=== PATIENT | female | born 1990 | race Caucasian/White ===

== ENCOUNTER 2023-11-25 09:07 | Emergency (ER) | payer OTHER, SELFPAY ==
[2023-11-25 09:34] VITALS: BP 155/104; PULSE 75; RESP 18; TEMP 36.8; O2SAT 100; BMI 28.3
--- NOTE | 2023-11-25 10:19 | ED.ANIMALBIT ---
HPI - Animal Bite General Chief Complaint: Animal Bite Stated Complaint: Dog bite Time Seen by Provider: 11/25/23 09:40 Source: patient, RN notes reviewed and old records reviewed Mode of arrival: ambulatory History of Present Illness ED Provider: Margaret Campos PA-C [facility] narrative: 33-year-old female with no significant past medical history presenting to the ED complaining of dog bite to right lower leg from neighbor's dog in [facility]. States she does not know neighbor or dog, believes dog may be a K[place], patient contacted animal control and board of [facility] [employer]. Dog vaccination status is unknown. Patient is not up-to-date on tetanus. Denies injury to the area. MD complaint: animal bite Related Data Previous Rx's ?Medication ?Instructions ?Recorded amoxicillin 875 mg-potassium 1 tab PO BID 7 days #14 tabs 11/25/23 clavulanate 125 mg tablet Allergies Allergy/AdvReac Type Severity Reaction Status Date / Time No Known Allergies Allergy Verified 11/25/23 09:39 Review of Systems Review of Systems: Yes all other systems are reviewed and are negative Constitutional: Constitutional: Reports as per [facility] Past Medical History Attestation statement: The following information was validated with the patient. Source: old records reviewed Social History Social History Advance Directives: No Advance Directives Information Provided: Yes Do you have a plan to hurt others: No Plan Physical Exam ED Vital Signs: Vital Signs - 24 hr 11/25/23 09:34 Temperature 98.3 F Pulse Rate 75 Respiratory Rate 18 Blood Pressure 155/104 H Pulse Oximetry 100 Oxygen Delivery Method Room Air BMI result Body Mass Index 28.3 Const General: cooperative, healthy appearing and no acute distress Orientation/consciousness: patient oriented x3 Limitations: no limitations HENMT Head: Yes normal to inspection and Yes atraumatic Ears: hearing grossly normal bilaterally General nose exam: Normal external nose present Face and sinus: Yes normal facial exam Eyes General: appearance normal, both eyes and all related structures EOM: EOMs intact bilaterally Neck Neck: Yes normal visual inspection and Yes no meningeal signs Resp Effort & Inspection: normal respiratory effort and no respiratory distress Cardio Rate: regular rate Skin Other: Superficial bite wound noted to right lower leg with small ecchymosis. Bleeding controlled. No pus drainage. No warmth. Rashes: no rashes Wounds: no wounds Neuro General: patient oriented x3, tone normal and no meningeal signs Cranial nerves: Yes CN's II-XII intact bilaterally Gait exam (Neuro): Normal gait present Extrem General: Yes normal to inspection Medications Administered Discontinued Medications Generic Name Dose Route Start Last Admin Trade Name Freq PRN Reason Stop Dose Admin Amoxicillin/Clavulanate Potassium 875 mg 11/25/23 09:50 11/25/23 10:22 Amoxicillin/Potassium Clav 875 Mg Tablet PO 11/25/23 09:51 875 mg ONCE ONE Administration Diphtheria/Tetanus/Acell Pertussis 0.5 ml 11/25/23 09:50 11/25/23 10:21 Diphth,Pertus(Acell),Tet Adult 0.5 Ml Syringe IM 11/25/23 09:51 0.5 ml .ONCE ONE Administration Rabies Immune Globulin 1,542.22 unit 11/25/23 09:50 11/25/23 10:52 Rabies Immune Globulin/Pf 900 Unit/3 Ml Vial 20 unit/kg (1542.22 unit) 11/25/23 09:51 1,542.22 unit IM Administration ONCE ONE Rabies Vaccine 1 ml 11/25/23 09:50 11/25/23 10:27 Rabies Vaccine (Pcec)/Pf 1 Ml Vial IM 11/25/23 09:51 1 ml .ONCE ONE Administration Medical Decision Making Medical Decision Making MDM Narrative: 33-year-old female with no significant past medical history presenting to the ED complaining of dog bite to right lower leg from neighbor's dog in [facility]. On exam hypertensive, NAD, nontoxic appearing physical exam as noted above with superficial bite wound right lower leg. No evidence of cellulitis. Low suspicion for osteomyelitis Plan: Update tetanus, rabies vaccine/immune globulin and p.o. Augmentin Please refer to course for remaining clinical decision making, interpretation of labs/imaging results, and discussions with consultants and/or family members. Results discussed with patient including worrisome signs and symptoms and strict return precautions, and when to return to the emergency department. They verbalized understanding and feel safe for discharge at this time. Differential Diagnosis Differential Diagnoses: The differential diagnosis associated with the presentation includes As above External Record Review External record reviewed: Inpatient record, Office record, Outpatient record, Prior outpatient labs, Prior outpatient radiology, Primary care record and Outside ED record Tests considered The following testing was considered but not selected: As above Prescription Management I considered prescription management with: Pain Medication and Antibiotic Discharge Plan Discharge Clinical Impression: Dog bite Patient Disposition: Home, Self-Care Instructions: Animal Bite (ED) Additional Instructions: Augmentin as an antibiotic please take as prescribed until completion Please follow-up for the remaining rabies vaccine series, on day 3, 7, and 14 Please proceed to short-stay surgery for remaining vaccinations If area begins to look infected, as red, there is drainage, you fever or chills return to the emergency department Prescriptions: New amoxicillin-pot clavulanate 875-125 mg tablet 1 tab PO BID 7 Days Qty: 14 0RF Referrals: Bryanna Gamino NP [Primary Care Provider] - 1 week Print Language: Tajik
[2023-11-25] MEDS: Diphth,Pertus(ACell),Tet Adult 0.5 ML SYRINGE IM (10:21)
[2023-11-25] MEDS: Amoxicillin/Potassium Clav 875 MG TABLET PO (10:22)
[2023-11-25] MEDS: Rabies Vaccine (PCEC)/PF 1 ML VIAL IM (10:27)
[2023-11-25] MEDS: Rabies Immune Globulin/PF 900 UNIT/3 ML VIAL 1542.22 UNIT IM (10:52)
[2023-11-25] MEDS: Ibuprofen 800 MG TABLET PO (11:38)
[2023-11-25 11:43] VITALS: BP 146/97; PULSE 76; RESP 18; TEMP 36.5; O2SAT 99
== END 2023-11-25 11:44 | disposition home or self-care (01) ==
PROVIDERS: Emergency Provider Emergency Medicine; PCP Nurse Practitioner Adult Health
DX: S81.851A Open bite, right lower leg, initial encounter (principal); W54.0XXA Bitten by dog, initial encounter; Y93.89 Activity, other specified; Y92.9 Unspecified place or not applicable; Y99.9 Unspecified external cause status; Z20.3 Contact with and (suspected) exposure to rabies; Z23 Encounter for immunization
CPT/HCPCS: 90375; 90471; 90675; 90715; 96372; 99283; 99284; V5020